=== PATIENT | female | born 1925 | race Caucasian/White ===

== ENCOUNTER 2016-10-27 16:55 | Inpatient (IN) | payer OTHER ==
[2016-10-27] MEDS ORDERED: IPRATROPIUM/ALBUTEROL 3 ML DEYVIAL IH ONE (17:17)
--- NOTE | 2016-10-27 17:49 | EDPHY ---
H & P Stated Complaint: cough sob Time Seen by Provider: 10/27/16 17:08 HPI/ROS: Chief complaint: Shortness of breath History of present illness: This is an 89-year-old female who currently resides in a memory care center and has a history of COPD who presents to the emergency department with family for evaluation of shortness of breath. Patient has been short of breath for the last week or so. It has been intermittent in nature. She has been struggling with allergies during this time. Family visited her today and vital signs were checked by staff and it was noted that her pulse oximetry was in the mid to low 80s. Family brought her here for further evaluation and care. On my evaluation patient states she feels well, she currently has no complaints. No report of fever, no persistent cough, no current shortness of breath, no chest pain, no pain or swelling in the legs. Review of systems: A 10 point review of systems was obtained and other than described above was negative - Personal History Current Tetanus/Diphtheria Vaccine: Yes - Medical/Surgical History Hx Asthma: No Hx Chronic Respiratory Disease: Yes Hx Diabetes: No Hx Cardiac Disease: No Hx Renal Disease: No Hx Cirrhosis: No Hx Alcoholism: No Hx HIV/AIDS: No Hx Splenectomy or Spleen Trauma: No Other PMH: copd - Social History Smoking Status: Former smoker - Physical Exam Exam: General Appearance: Alert, nontoxic. Eyes: Pupils equal and round no pallor or injection. ENT, Mouth: Mucous membranes moist. Respiratory: Lung sounds are globally diminished. Cardiovascular: Regular rate and rhythm. Gastrointestinal: Abdomen is soft and non tender, no masses, bowel sounds normal. Neurological: Alert and oriented x4. Skin: Warm and dry, no rashes. Musculoskeletal: Neck is supple non tender. Extremities are symmetrical, full range of motion. Psychiatric: Patient is oriented X 3, there is no agitation. Constitutional: Initial Vital Signs Temperature (C) 37.3 C 10/27/16 17:03 Heart Rate 87 10/27/16 17:03 Respiratory Rate 18 10/27/16 17:03 Blood Pressure 139/78 H 10/27/16 17:03 O2 Sat (%) 89 L 10/27/16 17:03 O2 Delivery Mode Room Air Allergies/Adverse Reactions: aspirin Allergy (Verified 10/27/16 17:00) ibuprofen [From Advil] Allergy (Verified 10/27/16 17:00) naproxen [From Aleve] Allergy (Verified 10/27/16 17:00) Home Medications: Medication Instructions Recorded Acetaminophen [Tylenol 325mg (*)] 650 mg PO Q8 PRN 10/27/16 Albuterol [Proventil Inhaler HFA 2 puffs IH Q4-6PRN PRN 10/27/16 (*)] Budesonide 90 Mcg INH [Pulmicort 2 puffs IH BID 10/27/16 90 Mcg Flexhaler (*)] Cholecalciferol Vit D3 [Vitamin D3 1,000 units PO DAILY 10/27/16 (*)] Cyanocobalamin [Vitamin B12 (*)] 400 mcg PO DAILY 10/27/16 Diltiazem Cd [Cardizem ER 180 MG 180 mg PO DAILY 10/27/16 (RX)] Docusate Sodium [Colace 100 MG (*)] 100 mg PO BID 10/27/16 Escitalopram Oxalate [Lexapro] 5 mg PO HS 10/27/16 Fluticasone Nasal [Flonase Nasal 2 sprays NASAL DAILY 10/27/16 [place] (RX)] Herbals/Supplements -Info Only 1 ea PO DAILY 10/27/16 Ipratropium/Albuterol [Duoneb (*)] 3 ml IH Q4H PRN 10/27/16 Levothyroxine [Synthroid 50 mcg 50 mcg PO DAILY06 10/27/16 (*)] Loratadine [Claritin 10 mg] 10 mg PO HS PRN 10/27/16 Simvastatin 10 mg PO HS 10/27/16 Medical Decision Making - Diagnostics Imaging Results: Imaging Impressions Chest X-Ray 10/27/16 17:17 Impression: 1. 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 2. Osteoporosis. This patient might benefit from a DEXA scan. Imaging: I viewed and interpreted images myself ED Course/Re-evaluation: Patient discussed with my secondary supervising physician Dr. Haris Quinteros. Patient presents to the emergency depart with reported shortness of breath without current symptoms. Pulse oximetry does show patient to be hypoxic. Evaluation shows decreased lung sounds. Chest x-ray consistent with COPD. EKG and laboratory studies otherwise unremarkable. I am concerned for a COPD exacerbation. She has been given a DuoNeb and Solu-Medrol. She continues to have decreased lung sounds and remains hypoxic, she decreased to 84% while ambulating. She will be admitted to Dr. Chan for further evaluation and care. The plan has been discussed with the patient and family and they voiced understanding and agreement with it. Differential Diagnosis: Included but not limited to COPD exacerbation, pneumonia, ACS, PE, pneumothorax - Data Points Laboratory Results: Laboratory Results 10/27/16 18:02 10/27/16 18:02 10/27/16 10/27/16 10/27/16 18:06 18:02 18:02 WBC 8.93 10^3/uL 10^3/uL (3.80-9.50) RBC 4.67 10^6/uL 10^6/uL (4.18-5.33) Hgb 13.9 g/dL g/dL (12.6-16.3) Hct 43.3 % % (38.0-47.0) MCV 92.7 fL fL (81.5-99.8) MCH 29.8 pg pg (27.9-34.1) MCHC 32.1 g/dL L g/dL (32.4-36.7) RDW 13.2 % % (11.5-15.2) Plt Count 320 10^3/uL 10^3/uL (150-400) MPV 9.1 fL fL (8.7-11.7) Neut % (Auto) 72.3 % % (39.3-74.2) Lymph % (Auto) 13.8 % L % (15.0-45.0) [place] % (Auto) 6.0 % % (4.5-13.0) Eos % (Auto) 6.7 % % (0.6-7.6) Baso % (Auto) 0.4 % % (0.3-1.7) Nucleat RBC Rel Count 0.0 % % (0.0-0.2) Absolute Neuts (auto) 6.45 10^3/uL 10^3/uL (1.70-6.50) Absolute Lymphs (auto) 1.23 10^3/uL 10^3/uL (1.00-3.00) Absolute Monos (auto) 0.54 10^3/uL 10^3/uL (0.30-0.80) Absolute Eos (auto) 0.60 10^3/uL H 10^3/uL (0.03-0.40) Absolute Basos (auto) 0.04 10^3/uL 10^3/uL (0.02-0.10) Absolute Nucleated RBC 0.00 10^3/uL 10^3/uL (0-0.01) Immature Gran % 0.8 % % (0.0-1.1) Immature Gran # 0.07 10^3/uL 10^3/uL (0.00-0.10) D-Dimer 0.65 ug/mLFEU H ug/mLFEU (0.00-0.50) Sodium 138 mEq/L mEq/L (134-144) Potassium 4.7 mEq/L mEq/L (3.5-5.2) Chloride 104 mEq/L mEq/L (97-110) Carbon Dioxide 21 mEq/l L mEq/l (22-31) Anion Gap 13 mEq/L mEq/L (8-16) BUN 16 mg/dL mg/dL (7-23) Creatinine 0.8 mg/dL mg/dL (0.6-1.0) Estimated GFR > 60 Glucose 109 mg/dL H mg/dL (70-100) Calcium 9.8 mg/dL mg/dL (8.5-10.4) Troponin I < 0.012 ng/mL ng/mL (0-0.034) Medications Given: Discontinued Medications Albuterol/Ipratropium (Duoneb) 3 ml IH EDNOW ONE Stop: 10/27/16 17:18 Last Admin: 10/27/16 17:45 Dose: 3 ml Methylprednisolone Sodium Succinate (Solu-Medrol) 125 mg IVP EDNOW ONE Stop: 10/27/16 18:22 Last Admin: 10/27/16 18:56 Dose: 125 mg Departure - Departure Disposition: [facility] Acute Clinical Impression: Chronic obstructive pulmonary disease with acute exacerbation Condition: Good
--- NOTE | 2016-10-27 18:04 | CPEKG ---
Heart Rate: 85 RR Interval: 706 P-R Interval: 140 QRSD Interval: 68 QT Interval: 340 QTC Interval: 405 P [place]: 48 QRS Marion: 5 T Wave [place]: 64 EKG Severity - NORMAL ECG - EKG Impression: SINUS RHYTHM Electronically Signed By: Haris Quinteros 27-Oct-2016 23:29:14
[2016-10-27 18:11] LABS: % IMMATURE GRANULYOCYTES 0.8 % (0.0-1.1); ABSOLUTE IMMATURE GRANULOCYTES 0.07 10^3/uL (0.00-0.10); ADD DIFF? NO; ADD MORPH? NO; ADD SCAN? NO; ATYPICAL LYMPHOCYTE FLAG 0 (0-99); FRAGMENT RBC FLAG 0 (0-99); HEMATOCRIT 43.3 % (38.0-47.0); HEMOGLOBIN 13.9 g/dL (12.6-16.3); LEFT SHIFT FLG 0 (0-99); LIPEMIA HEMOLYSIS FLAG 80 (0-99); MEAN CELL HEMOGLOBIN 29.8 pg (27.9-34.1); MEAN CELL HEMOGLOBIN CONCENTR. 32.1 g/dL (32.4-36.7); MEAN CELL VOLUME 92.7 fL (81.5-99.8); MEAN PLATELET VOLUME 9.1 fL (8.7-11.7); PLATELET CLUMPS FLAG 10 (0-99); PLATELET COUNT 320 10^3/uL (150-400); RED BLOOD CELL COUNT 4.67 10^6/uL (4.18-5.33); RED CELL DISTRIBUTION WIDTH 13.2 % (11.5-15.2)
[2016-10-27 18:21] LABS: CALCIUM 9.8 mg/dL (8.5-10.4); CARBON DIOXIDE 21 mEq/l (22-31); CHLORIDE 104 mEq/L (97-110); CREATININE 0.8 mg/dL (0.6-1.0); GLOMERULAR FILTRATION RATE > 60; GLUCOSE 109 mg/dL (70-100); SODIUM 138 mEq/L (134-144)
[2016-10-27] MEDS ORDERED: methylPREDNISolone SOD SUCC 125 MG/2 ML VIAL IVP ONE (18:21)
[2016-10-27 18:32] LABS: TROPONIN I < 0.012 ng/mL (0-0.034)
[2016-10-27 18:38] LABS: ANION GAP 13 mEq/L (8-16); POTASSIUM 4.7 mEq/L (3.5-5.2)
[2016-10-27] MEDS ORDERED: ALBUTEROL 3 ML DEYVIAL IH PRN (18:40)
[2016-10-27] MEDS ORDERED: ONDANSETRON 4 MG/2 ML VIAL IVP PRN (18:40)
[2016-10-27] MEDS ORDERED: ONDANSETRON DISINTEGRATING 4 MG TAB PO PRN (18:40)
[2016-10-27] MEDS ORDERED: ALBUTEROL 60 PUFFS/8 GM MDI IH PRN (19:47)
[2016-10-27] MEDS ORDERED: CETIRIZINE 10 MG TAB PO PRN (19:47)
--- NOTE | 2016-10-27 19:54 | PDGENHP ---
History and Physical - Chief Complaint Acute cough - History of Present Illness Primary care provider: Dr. Mcrae HPI: 89-year-old female presenting with acute cough characterized as productive , with associated allergic symptoms, intermittent shortness of breath, general malaise with onset of symptoms approximately 8 days ago. The patient was reportedly seen by a primary care tender at [facility] today and was noted to have an SpO2 of less than 90% on room air at rest. She was then noted to have an ambulatory saturation of 82% on room air. The patient's daughter notes that approximately 8 days ago she had been taking Claritin for her allergic symptoms and then was switched to Zyrtec. Zyrtec reportedly alleviated the sinus congestion improve the cough, but it resulted in a daytime fatigue and was subsequently discontinued. The patient is now currently back on Claritin. The patient has been using her home inhalers regularly but has not recently been on steroids. She otherwise denies any subjective fevers or chills. She denies any GI symptoms. History Information - Allergies/Home Medication List Allergies/Adverse Reactions: aspirin Allergy (Verified 10/27/16 17:00) ibuprofen [From Advil] Allergy (Verified 10/27/16 17:00) naproxen [From Aleve] Allergy (Verified 10/27/16 17:00) shellfish derived Allergy (Verified 10/27/16 19:37) Home Medications: Acetaminophen [Tylenol 325mg (*)] 650 mg PO Q8 PRN 10/27/16 [Last Taken Unknown] Albuterol [Proventil Inhaler HFA (*)] 2 puffs IH Q4-6PRN PRN 10/27/16 [Last Taken Unknown] Budesonide 90 Mcg INH [Pulmicort 90 Mcg Flexhaler (*)] 2 puffs IH BID 10/27/16 [ Last Taken 10/27/16 1 PUFF] Cholecalciferol Vit D3 [Vitamin D3 (*)] 1,000 units PO DAILY 10/27/16 [Last Taken 10/27/16] Cyanocobalamin [Vitamin B12 (*)] 400 mcg PO DAILY 10/27/16 [Last Taken 10/27/16] Diltiazem Cd [Cardizem ER 180 MG (RX)] 180 mg PO DAILY 10/27/16 [Last Taken 01/05] Docusate Sodium [Colace 100 MG (*)] 100 mg PO BID 10/27/16 [Last Taken 10/27/16 1 CAP] Escitalopram Oxalate [Lexapro] 5 mg PO HS 10/27/16 [Last Taken 10/26/16] Fluticasone Nasal [Flonase Nasal [place] (RX)] 2 sprays NASAL DAILY 10/27/16 [ Last Taken 10/27/16] Herbals/Supplements -Info Only 1 ea PO DAILY 10/27/16 [Last Taken Unknown] Ipratropium/Albuterol [Duoneb (*)] 3 ml IH Q4H PRN 10/27/16 [Last Taken 3 TIMES] Levothyroxine [Synthroid 50 mcg (*)] 50 mcg PO DAILY06 10/27/16 [Last Taken 01/05] Loratadine [Claritin 10 mg] 10 mg PO HS PRN 10/27/16 [Last Taken Unknown] Simvastatin 10 mg PO HS 10/27/16 [Last Taken 10/26/16] I have personally reviewed and updated: family history, medical history, social history, surgical history - Past Medical History atrial fibrillation (Unclear type, on calcium channel taniya), COPD (On chronic budesonide history of oral steroid use) Additional medical history: Dementia living in the memory care unit - Surgical History Reports: no pertinent surgical hx - Family History Additional family history: No recent sick family contacts - Social History Smoking Status: Former smoker Alcohol Use: None Drug Use: None Additional social history: Lives in [facility], previously living in [facility], living in [place] before that, daughter lives locally Review of Systems ROS: 10pt was reviewed & negative except for what was stated in HPI & below EENMT: Reports: nose congestion Respiratory: Reports: cough, shortness of breath Physical Exam Temp Pulse Resp BP Pulse Ox 37.3 C 87 18 139/78 H 89 L 10/27/16 17:03 10/27/16 17:03 10/27/16 17:03 10/27/16 17:03 10/27/16 17:03 Constitutional: no apparent distress, appears nourished, not in pain, chronically ill appearing, No uncomfortable Eyes: PERRL, anicteric sclera, EOMI Ears, Nose, Mouth, Throat: moist mucous membranes, hearing normal, ears appear normal, no oral mucosal ulcers Cardiovascular: regular rate and rhythym, no murmur, rub, or gallop, edema ( Trace bilateral lower extremities) Respiratory: reduced air movement (Previous inspiratory and expiratory air movement bilaterally), No expiratory wheeze, No inspiratory crackles, No bronchial breath sounds, No respiratory distress Gastrointestinal: normoactive bowel sounds, soft, non-tender abdomen, no palpable masses Skin: other (Firm, mildly tender left jowel subcutaneous nodule without any overlying erythema) Neurologic: other (Alert awake oriented x2 to person and place not to time), No weakness, No facial droop Psychiatric: interacting appropriately, not encephalopathic, thought process linear, flat affect, other (Concentration /), No agitated Lymph, Heme, Immunologic: other (Mildly tender left submandibular lymph node, no anterior cervical lymphadenopathy) Lab Data & Imaging Review 10/27/16 18:02 10/27/16 18:02 WBC 8.93 10^3/uL (3.80-9.50) 10/27/16 18:02 RBC 4.67 10^6/uL (4.18-5.33) 10/27/16 18:02 Hgb 13.9 g/dL (12.6-16.3) 10/27/16 18:02 Hct 43.3 % (38.0-47.0) 10/27/16 18:02 MCV 92.7 fL (81.5-99.8) 10/27/16 18:02 MCH 29.8 pg (27.9-34.1) 10/27/16 18:02 MCHC 32.1 g/dL (32.4-36.7) L 10/27/16 18:02 RDW 13.2 % (11.5-15.2) 10/27/16 18:02 Plt Count 320 10^3/uL (150-400) 10/27/16 18:02 MPV 9.1 fL (8.7-11.7) 10/27/16 18:02 Neut % (Auto) 72.3 % (39.3-74.2) 10/27/16 18:02 Lymph % (Auto) 13.8 % (15.0-45.0) L 10/27/16 18:02 [place] % (Auto) 6.0 % (4.5-13.0) 10/27/16 18:02 Eos % (Auto) 6.7 % (0.6-7.6) 10/27/16 18:02 Baso % (Auto) 0.4 % (0.3-1.7) 10/27/16 18:02 Nucleat RBC Rel Count 0.0 % (0.0-0.2) 10/27/16 18:02 Absolute Neuts (auto) 6.45 10^3/uL (1.70-6.50) 10/27/16 18:02 Absolute Lymphs (auto) 1.23 10^3/uL (1.00-3.00) 10/27/16 18:02 Absolute Monos (auto) 0.54 10^3/uL (0.30-0.80) 10/27/16 18:02 Absolute Eos (auto) 0.60 10^3/uL (0.03-0.40) H 10/27/16 18:02 Absolute Basos (auto) 0.04 10^3/uL (0.02-0.10) 10/27/16 18:02 Absolute Nucleated RBC 0.00 10^3/uL (0-0.01) 10/27/16 18:02 Immature Gran % 0.8 % (0.0-1.1) 10/27/16 18:02 Immature Gran # 0.07 10^3/uL (0.00-0.10) 10/27/16 18:02 D-Dimer 0.65 ug/mLFEU (0.00-0.50) H 10/27/16 18:06 Sodium 138 mEq/L (134-144) 10/27/16 18:02 Potassium 4.7 mEq/L (3.5-5.2) 10/27/16 18:02 Chloride 104 mEq/L (97-110) 10/27/16 18:02 Carbon Dioxide 21 mEq/l (22-31) L 10/27/16 18:02 Anion Gap 13 mEq/L (8-16) 10/27/16 18:02 BUN 16 mg/dL (7-23) 10/27/16 18:02 Creatinine 0.8 mg/dL (0.6-1.0) 10/27/16 18:02 Estimated GFR > 60 10/27/16 18:02 Glucose 109 mg/dL (70-100) H 10/27/16 18:02 Calcium 9.8 mg/dL (8.5-10.4) 10/27/16 18:02 Troponin I < 0.012 ng/mL (0-0.034) 10/27/16 18:02 Visualized and Interpreted Chest x-ray results: Yes Chest X-Ray results: no infiltrate (Hyper inflated, osteo per [place]) Visualized and Interpreted EKG results: Yes EKG Interpretation: Positive for: other (Q-wave in lead 3) Assessment & Plan Assessment: 89-year-old female presents with acute COPD exacerbation in the setting of URI Plan: 1. COPD exacerbation. Acute, new problem this provider, further workup indicated. Evidenced by reduction in expiratory air movement with hypoxia and recent cough, most likely secondary to URI -discussed with Basil Villa, emergency department provider, he has informed me that he is given the patient IV steroids, DuoNeb treatment -continue oral prednisone for a total 5 day burst -continue scheduled duo nebs, p.r.n. inhalers -hold on antibiotics given age and comorbidities and no evidence of infiltrate on chest x-ray -continue Claritin -continue Mucinex -Tessalon Perles as needed -continue to monitor oxygen saturation, discharged home tomorrow with supplemental oxygen if SpO2 remains less than 90% on room air -schedule outpatient follow-up appoint with Dr. Jurgen Alberts for next week, patient and family are very amenable to this -order outside records including most recent primary care note and pulmonary function tests from her previous primary care provider, Dr. Rut Umana 2. Atrial fibrillation. Unclear type, continue calcium channel taniya 3. Dementia. Chronic, currently no behavioral disturbance, monitor for signs of sundowning Diet. Regular Prophylaxis. High risk patient, Lovenox 40 Code. Do not resuscitate per patient, her daughter is her MPOA Disposition. Anticipated discharge is 10/28/2016, pending further workup and treatment of conditions as outlined above.
[2016-10-27] MEDS ORDERED: BENZONATATE 100 MG CAP PO PRN (19:59)
[2016-10-27] MEDS ORDERED: IPRATROPIUM/ALBUTEROL 3 ML DEYVIAL IH SCH (21:00)
[2016-10-27] MEDS: BUDESONIDE 90 MCG MDI IH SCH (21:59)
[2016-10-27] MEDS: ESCITALOPRAM OXALATE 10 MG TAB PO SCH (22:39)
[2016-10-27] MEDS: guaiFENesin 600 MG TAB.ER PO SCH (22:40)
[2016-10-27] MEDS: DOCUSATE SODIUM 100 MG CAP PO SCH (22:40)
[2016-10-27] MEDS: PRAVASTATIN SODIUM 20 MG TAB PO SCH (22:41)
[2016-10-27] MEDS: ACETAMINOPHEN 325 MG TAB PO PRN (23:28)
[2016-10-28] MEDS: LEVOTHYROXINE 50 MCG TAB PO SCH (05:22)
[2016-10-28] MEDS: CYANO/VITAMIN B12 100 MCG TAB PO SCH (08:25)
[2016-10-28] MEDS: guaiFENesin 600 MG TAB.ER PO SCH ×2 (08:26→19:39)
[2016-10-28] MEDS: predniSONE 20 MG TAB PO SCH (08:26)
[2016-10-28] MEDS: DOCUSATE SODIUM 100 MG CAP PO SCH ×2 (08:26→19:37)
[2016-10-28] MEDS: ENOXAPARIN 40 MG/0.4 ML SYR SC SCH (08:26)
[2016-10-28] MEDS: DILTIAZEM CD 180 MG CAP PO SCH (08:26)
[2016-10-28] MEDS: CHOLECALCIFEROL VIT D3 1,000 UNITS TAB PO SCH (08:26)
[2016-10-28] MEDS: FLUTICASONE NASAL 120 SPRAYS/16 GM MDI EACHNARE SCH (08:28)
[2016-10-28] MEDS: BUDESONIDE 90 MCG MDI IH SCH ×2 (08:29→21:18)
[2016-10-28] MEDS ORDERED: Herbals/Supplements -Info Only PO SCH (09:00)
--- NOTE | 2016-10-28 11:49 | HOSPPROG ---
Hospitalist Progress Note Assessment/Plan: Patient is an 89 y/o female who presented to the ER w a cough and allergy symptoms. She also has c/o shortness of breath. Today is my first encounter with the patient/ chart reviewed. *COPD exacerbation will need Oxygen on dc/sats on room air are 82% duonebs and prednisone Claritin and Mucinex has an elevated d dimer/ afib could affect this/ get a CTA to see Dr Alberts next week for further f/u *hypoxemia will need home O2 suspect it is from COPD but will r/o a PE *Generalized weakness OT recommending SNF *HTN has had persistent elevated bp will initiate low dose of amlodipine *afib calcium channel taniya *dementia at her baseline *Plan: patient will require another midnight stay for further evaluation w a CTA. Not a safe dc to her AL due to weakness and may require a SNF. Subjective: Sisi is still short of breath, she isn't sure if she is at her baseline or not. Objective: Vital Signs Temp Pulse Resp BP Pulse Ox 36.3 C 87 22 H 176/85 H 93 10/28/16 11:20 10/28/16 11:20 10/28/16 11:20 10/28/16 11:20 10/28/16 11:20 10/27/16 10/28/16 10/29/16 05:59 05:59 05:59 Intake Total 500 Balance 500 - Physical Exam Constitutional: no apparent distress Eyes: PERRL Ears, Nose, Mouth, Throat: hard of hearing Cardiovascular: regular rate and rhythym Respiratory: no respiratory distress, reduced air movement (tight lung sounds) Gastrointestinal: normoactive bowel sounds Skin: warm Musculoskeletal: no muscle tenderness Psychiatric: interacting appropriately, poor memory ICD10 Worksheet Patient Problems: Problems Problem Status Onset Chronic obstructive pulmonary disease with acute exacerbation Acute
[2016-10-28] MEDS ORDERED: IOPAMIDOL (ISOVUE 370) 100 ML BTL IV ONE (15:35)
[2016-10-28] MEDS ORDERED: NS 250 ML IV SCH (16:15)
[2016-10-28] MEDS: IPRATROPIUM/ALBUTEROL 3 ML DEYVIAL IH PRN (16:59)
[2016-10-28] MEDS: ESCITALOPRAM OXALATE 10 MG TAB PO SCH (19:37)
[2016-10-28] MEDS: ACETAMINOPHEN 325 MG TAB PO PRN (19:37)
[2016-10-28] MEDS: PRAVASTATIN SODIUM 20 MG TAB PO SCH (19:38)
[2016-10-29] MEDS: LEVOTHYROXINE 50 MCG TAB PO SCH (06:01)
[2016-10-29] MEDS: CYANO/VITAMIN B12 100 MCG TAB PO SCH (09:49)
[2016-10-29] MEDS: CHOLECALCIFEROL VIT D3 1,000 UNITS TAB PO SCH (09:49)
[2016-10-29] MEDS: DOCUSATE SODIUM 100 MG CAP PO SCH ×2 (09:50→21:48)
[2016-10-29] MEDS: DILTIAZEM CD 180 MG CAP PO SCH (09:50)
[2016-10-29] MEDS: FLUTICASONE NASAL 120 SPRAYS/16 GM MDI EACHNARE SCH (09:50)
[2016-10-29] MEDS: predniSONE 20 MG TAB PO SCH (09:50)
[2016-10-29] MEDS: guaiFENesin 600 MG TAB.ER PO SCH ×2 (09:50→21:48)
[2016-10-29] MEDS: ENOXAPARIN 40 MG/0.4 ML SYR SC SCH (09:51)
--- NOTE | 2016-10-29 10:47 | HOSPPROG ---
Hospitalist Progress Note Assessment/Plan: Patient is an 89 y/o female who presented to the ER w a cough and allergy symptoms. She also has c/o shortness of breath. *COPD exacerbation will need Oxygen on dc/sats on room air are 82% duonebs and prednisone Claritin and Mucinex CTA shows no PE to see Dr Alberts for further f/u *hypoxemia will need home O2 r/t COPD *Generalized weakness OT & PT recommending SNF *HTN has had persistent elevated bp low dose of amlodipine w improvement/ may need dose increased/will monitor another day *afib calcium channel taniya *dementia at her baseline *Plan: will need SNF/ FM Subjective: Sisi is feeling much better today/ still has ongoing shortness of breath. Objective: Vital Signs Temp Pulse Resp BP Pulse Ox 36.8 C 84 12 158/78 H 92 10/29/16 07:39 10/29/16 09:50 10/29/16 07:39 10/29/16 09:49 10/29/16 07:39 10/28/16 10/29/16 10/30/16 05:59 05:59 05:59 Intake Total 550 Balance 550 - Physical Exam Constitutional: no apparent distress, appears nourished, not in pain Eyes: PERRL Ears, Nose, Mouth, Throat: hard of hearing Cardiovascular: regular rate and rhythym Respiratory: no respiratory distress, reduced air movement (bases) Gastrointestinal: normoactive bowel sounds Skin: warm, normal color Musculoskeletal: generalized weakness Neurologic: AAOx3 Psychiatric: interacting appropriately, poor memory ICD10 Worksheet Patient Problems: Problems Problem Status Onset Chronic obstructive pulmonary disease with acute exacerbation Acute
[2016-10-29 10:51] LABS: ANION GAP 8 mEq/L (8-16); CALCIUM 9.6 mg/dL (8.5-10.4); CARBON DIOXIDE 25 mEq/l (22-31); CHLORIDE 107 mEq/L (97-110); CREATININE 0.8 mg/dL (0.6-1.0); GLOMERULAR FILTRATION RATE > 60; GLUCOSE 87 mg/dL (70-100); POTASSIUM 4.2 mEq/L (3.5-5.2); SODIUM 140 mEq/L (134-144)
[2016-10-29] MEDS: BUDESONIDE 90 MCG MDI IH SCH ×2 (11:40→22:09)
[2016-10-29] MEDS: IPRATROPIUM/ALBUTEROL 3 ML DEYVIAL IH PRN ×2 (11:40→22:09)
[2016-10-29] MEDS: ESCITALOPRAM OXALATE 10 MG TAB PO SCH (21:47)
[2016-10-29] MEDS: PRAVASTATIN SODIUM 20 MG TAB PO SCH (21:48)
[2016-10-30] MEDS: LEVOTHYROXINE 50 MCG TAB PO SCH (05:09)
[2016-10-30] MEDS: guaiFENesin 600 MG TAB.ER PO SCH ×2 (09:09→23:17)
[2016-10-30] MEDS: predniSONE 20 MG TAB PO SCH (09:09)
[2016-10-30] MEDS: DOCUSATE SODIUM 100 MG CAP PO SCH ×2 (09:09→23:17)
[2016-10-30] MEDS: ENOXAPARIN 40 MG/0.4 ML SYR SC SCH (09:10)
[2016-10-30] MEDS: CHOLECALCIFEROL VIT D3 1,000 UNITS TAB PO SCH (09:10)
[2016-10-30] MEDS: DILTIAZEM CD 180 MG CAP PO SCH (09:10)
[2016-10-30] MEDS: CYANO/VITAMIN B12 100 MCG TAB PO SCH (09:10)
[2016-10-30] MEDS: FLUTICASONE NASAL 120 SPRAYS/16 GM MDI EACHNARE SCH (09:15)
[2016-10-30] MEDS: BUDESONIDE 90 MCG MDI IH SCH ×2 (09:16→20:04)
[2016-10-30] MEDS: IPRATROPIUM/ALBUTEROL 3 ML DEYVIAL IH PRN (10:51)
--- NOTE | 2016-10-30 14:54 | HOSPPROG ---
Hospitalist Progress Note Assessment/Plan: Patient is an 89 y/o female who presented to the ER w a cough and allergy symptoms. She also has c/o shortness of breath. *COPD exacerbation will need Oxygen on dc/sats on room air are 82% duonebs and prednisone Claritin and Mucinex CTA shows no PE to see Dr Alberts for further f/u much improved today/ on 1/2 liter of O2 *hypoxemia will need home O2 r/t COPD *Generalized weakness OT & PT recommending SNF *HTN much improvement w amlodipine *afib calcium channel taniya *dementia at her baseline *Plan: will need SNF/ FM Subjective: Parris is feeling well today. No complaints. Objective: Vital Signs Temp Pulse Resp BP Pulse Ox 37.0 C 67 18 128/67 H 91 L 10/30/16 08:18 10/30/16 10:51 10/30/16 10:51 10/30/16 09:10 10/30/16 14:22 Laboratory Results 10/29/16 10:06 10/29/16 10/30/16 10/31/16 05:59 05:59 05:59 Intake Total 550 700 Balance 550 700 - Physical Exam Constitutional: no apparent distress, appears nourished, not in pain Eyes: PERRL Ears, Nose, Mouth, Throat: hard of hearing Cardiovascular: regular rate and rhythym Respiratory: no respiratory distress Gastrointestinal: normoactive bowel sounds Skin: warm Musculoskeletal: generalized weakness Neurologic: AAOx3 Psychiatric: interacting appropriately, not anxious ICD10 Worksheet Patient Problems: Problems Problem Status Onset Chronic obstructive pulmonary disease with acute exacerbation Acute
[2016-10-30] MEDS: ESCITALOPRAM OXALATE 10 MG TAB PO SCH (23:17)
[2016-10-30] MEDS: PRAVASTATIN SODIUM 20 MG TAB PO SCH (23:17)
[2016-10-31] MEDS: LEVOTHYROXINE 50 MCG TAB PO SCH (06:29)
[2016-10-31 08:01] VITALS: BP 143/57; RESP 18; TEMP 98.3; O2SAT 91
[2016-10-31] MEDS: BUDESONIDE 90 MCG MDI IH SCH (08:04)
[2016-10-31] MEDS: DILTIAZEM CD 180 MG CAP PO SCH (08:21)
[2016-10-31] MEDS: CYANO/VITAMIN B12 100 MCG TAB PO SCH (08:21)
[2016-10-31] MEDS: DOCUSATE SODIUM 100 MG CAP PO SCH (08:21)
[2016-10-31] MEDS: CHOLECALCIFEROL VIT D3 1,000 UNITS TAB PO SCH (08:21)
[2016-10-31] MEDS: guaiFENesin 600 MG TAB.ER PO SCH (08:22)
[2016-10-31] MEDS: FLUTICASONE NASAL 120 SPRAYS/16 GM MDI EACHNARE SCH (08:22)
[2016-10-31] MEDS: predniSONE 20 MG TAB PO SCH (08:22)
[2016-10-31] MEDS: ENOXAPARIN 40 MG/0.4 ML SYR SC SCH (08:22)
--- NOTE | 2016-10-31 08:50 | HOSPPROG ---
Hospitalist Progress Note Assessment/Plan: Patient is an 89 y/o female who presented to the ER w a cough and allergy symptoms. She also has c/o shortness of breath. *COPD exacerbation will need Oxygen on dc/sats on room air are 86% duonebs and prednisone Claritin and Mucinex CTA shows no PE to see Dr Alberts for further f/u much improved today/ on 1/2 liter of O2 *hypoxemia will need home O2 r/t COPD *Generalized weakness OT & PT recommending SNF *HTN much improvement w amlodipine *afib calcium channel taniya *dementia at her baseline *Plan: dispo to SNF Subjective: Parris is feeling well/ anxious to be dc Objective: Vital Signs Temp Pulse Resp BP Pulse Ox 36.8 C 69 18 143/57 H 91 L 10/31/16 07:59 10/31/16 08:21 10/31/16 07:59 10/31/16 07:59 10/31/16 08:04 Laboratory Results 10/29/16 10:06 10/30/16 10/31/16 11/01/16 05:59 05:59 05:59 Intake Total 700 350 Balance 700 350 - Physical Exam Constitutional: no apparent distress, appears nourished, not in pain Eyes: PERRL Ears, Nose, Mouth, Throat: hearing normal Respiratory: no respiratory distress Skin: warm Musculoskeletal: generalized weakness Neurologic: AAOx3 Psychiatric: interacting appropriately, not anxious ICD10 Worksheet Patient Problems: Problems Problem Status Onset Chronic obstructive pulmonary disease with acute exacerbation Acute
--- NOTE | 2016-10-31 09:00 | PDIAF ---
- Diagnosis Diagnosis: COPD exacerbation Code Status: Full Code - Medication Management Discharge Medications: Medications to Continue on Transfer Acetaminophen [Tylenol 325mg (*)] 650 mg PO Q8 PRN 10/27/16 [Last Taken Unknown] Albuterol [Proventil Inhaler HFA (*)] 2 puffs IH Q4-6PRN PRN 10/27/16 [Last Taken Unknown] Budesonide 90 Mcg INH [Pulmicort 90 Mcg Flexhaler (*)] 2 puffs IH BID 10/27/16 [ Last Taken 10/27/16 1 PUFF] Cholecalciferol Vit D3 [Vitamin D3 (*)] 1,000 units PO DAILY 10/27/16 [Last Taken 10/27/16] Cyanocobalamin [Vitamin B12 (*)] 400 mcg PO DAILY 10/27/16 [Last Taken 10/27/16] Diltiazem Cd [Cardizem ER Q24hr] 180 mg PO DAILY 10/27/16 [Last Taken 10/27/16] Docusate Sodium [Colace 100 MG (*)] 100 mg PO BID 10/27/16 [Last Taken 10/27/16 1 CAP] Escitalopram Oxalate [Lexapro] 5 mg PO HS 10/27/16 [Last Taken 10/26/16] Fluticasone Nasal [Flonase Nasal [place]] 2 sprays NASAL DAILY 10/27/16 [Last Taken 10/27/16] Herbals/Supplements -Info Only 1 ea PO DAILY 10/27/16 [Last Taken Unknown] Ipratropium/Albuterol [Duoneb (*)] 3 ml IH Q4H PRN 10/27/16 [Last Taken 3 TIMES] Levothyroxine [Synthroid 50 mcg (*)] 50 mcg PO DAILY06 10/27/16 [Last Taken 01/05] Loratadine [Claritin 10 mg] 10 mg PO HS PRN 10/27/16 [Last Taken Unknown] Simvastatin 10 mg PO HS 10/27/16 [Last Taken 10/26/16] amLODIPine BESYLATE [Norvasc 2.5 mg (*)] 2.5 mg PO DAILY tab 10/31/16 [Last Taken Unknown] predniSONE 20 mg PO DAILY tablet 10/31/16 [Last Taken Unknown] Discharge Medications: Refer to the Discharge Home Medication list for PRN reason. - Orders Services needed: Physical Therapy, Occupational Therapy Oxygen: 2 liters Diet Recommendation: no restrictions on diet Diet Texture: Regular Texture Diet Additional: prednisone 20 mg x 3 days, then decrease to 10 mg x 3 days; then stop, take with food. - Follow Up Care Current Providers and Referrals: Miki Alberts MD [Medical Doctor] - 3-5 days Oksana Mcrae MD [Primary Care Provider] - As per Instructions
--- NOTE | 2016-10-31 10:02 | GDS ---
[f rep st] DISCHARGE SUMMARY DISCHARGE DIAGNOSES: 1. Chronic obstructive pulmonary disease exacerbation. 2. Hypoxemia. 3. General weakness. 4. Hypertension. 5. Atrial fibrillation. 6. Dementia. HISTORY OF PRESENT ILLNESS: Briefly, the patient is an 89-year-old female, who presented to the ER with a cough and allergy symptoms. She also complains of shortness of breath. It was noted that sh jaret had an elevated D-dimer. A CTA was performed which showed no pulmonary emboli. She will be disch arged to [facility] for rehab. HOSPITAL COURSE BY PROBLEM: 1. COPD exacerbation. She is on DuoNeb and prednisone. The prednisone will be weaned off. She wi ll further follow up with Dr. Alberts in the outpatient setting. 2. Hypoxemia. Resolved with oxygen. 3. Generalized weakness. She will get occupational therapy and physical therapy at the [facility] facility. 4. Hypertension. A new medication added to her list is amlodipine. She has had much improvement. 5. Atrial fibrillation on calcium channel taniya. 6. Dementia. She is at her baseline pending labs and tests. CONDITION ON DISCHARGE: Stable. Blood pressure is 143/57, respiratory rate is 18, pulse is 69, tem perature is 36.9 Celsius, O2 saturation on 1 L 91%. MEDICATIONS AT DISCHARGE: Please see the EMR. DISCHARGE INSTRUCTIONS: 1. To follow up with Dr. Jurgen Alberts with pulmonology. 2. If still fever, chills, chest pain, or worsening of shortness of breath, return to the ER. TIME SPENT: Greater than 30 minutes discharging and coordinating care. /[id number]/MODL
[2016-10-31] MEDS: IPRATROPIUM/ALBUTEROL 3 ML DEYVIAL IH PRN (10:51)
[2016-10-31 11:04] VITALS: PULSE 75
== END 2016-10-31 11:57 | DRG 192 ==
LOC: F3N 20:13 → OBSVTOIN 10-28 14:49
PROVIDERS: ADMIT Internal Medicine; ATTEND Internal Medicine
DX: J44.1 Chronic obstructive pulmonary disease with (acute) exacerbation (principal); R09.02 Hypoxemia; I10 Essential (primary) hypertension; I48.91 Unspecified atrial fibrillation; F03.90 Unspecified dementia, unspecified severity, without behavioral disturbance, psychotic disturbance, mood disturbance, and anxiety; R53.1 Weakness; Z87.891 Personal history of nicotine dependence; Z66 Do not resuscitate
CPT/HCPCS: 97116-GP; 97162-GP; 97166-GO; 97535-GO; G0378; G8978-GP-CJ; G8979-GP-CI; G8987-GO-CK; G8988-GO-CJ; G8989-GO-CJ; J1650; Q9967

== ENCOUNTER 2016-11-29 09:51 | Emergency (ER) | payer OTHER ==
[2016-11-29 10:08] VITALS: TEMP 98.2; O2SAT 92
--- NOTE | 2016-11-29 11:33 | EDPHY ---
H & P Time Seen by Provider: 11/29/16 09:56 HPI/ROS: CHIEF COMPLAINT: Fall out of bed HISTORY OF PRESENT ILLNESS: 89-year-old female who is staying at [facility] in the memory care unit for history of dementia presents to the emergency department by ambulance with her daughter after she rolled out of bed likely this morning. The patient sustained an abrasion to her right knee and a laceration to her left elbow. She believes her tetanus shot is current. She did not hit her head or lose consciousness. She has no chest pain or difficulty breathing. The patient does not remember what happened to her because she has a history of dementia REVIEW OF SYSTEMS: Constitutional: No fever, no chills. Eyes: No double or blurry vision. ENT: No sore throat. Respiratory: No cough, no shortness of breath. Cardiac: No chest pain. Gastrointestinal: No abdominal pain, vomiting or diarrhea. Genitourinary: No dysuria. Musculoskeletal: No neck or back pain. Skin: No rashes. Neurological: No headache. Past Medical/Surgical History: Dementia currently staying in a memory unit at [facility], COPD, asthma, emphysema Social History: , lives at memory unit of [facility] Smoking Status: Former smoker Physical Exam: General Appearance: Alert, no distress. No visible signs of trauma to her head. She is mentating normally and answering questions appropriately. The daughter at bedside. Eyes: Pupils equal and round. Extraocular motions are all intact. ENT: Mouth: Mucous membranes moist. Dry blood noted to the left nostril. Respiratory: No wheezing, rhonchi, or rales, lungs are clear to auscultation. Cardiovascular: Regular rate and rhythm. Gastrointestinal: Abdomen is soft and nontender, no masses, no rebound or guarding, bowel sounds normal. Neurological: Alert and oriented x 3, cranial nerves II through XII grossly intact Skin: Superficial skin tear to the anterior aspect of the right knee. She is no laceration noted to the right knee. The left posterior elbow reveals skin tear with larger deep component. Warm and dry, no rashes. Musculoskeletal: Nontender to palpate along the cervical, thoracic or lumbar spine. Neck is supple. Extremities: Full range of motion and no peripheral edema. No palpable bony tenderness. Full range of motion of upper lower extremities. Psychiatric: Patient is oriented X 3, there is no agitation. Constitutional: Initial Vital Signs Temperature (C) 36.8 C 11/29/16 09:51 Heart Rate 79 11/29/16 09:51 Respiratory Rate 14 11/29/16 09:51 Blood Pressure 147/48 H 11/29/16 09:51 O2 Sat (%) 92 11/29/16 09:51 O2 Delivery Mode Room Air Allergies/Adverse Reactions: aspirin Allergy (Verified 10/27/16 17:00) ibuprofen [From Advil] Allergy (Verified 10/27/16 17:00) naproxen [From Aleve] Allergy (Verified 10/27/16 17:00) shellfish derived Allergy (Verified 10/27/16 19:37) Home Medications: Medication Instructions Recorded Acetaminophen [Tylenol 325mg (*)] 650 mg PO Q8 PRN 10/27/16 Albuterol [Proventil Inhaler HFA 2 puffs IH Q4-6PRN PRN 10/27/16 (*)] Budesonide 90 Mcg INH [Pulmicort 2 puffs IH BID 10/27/16 90 Mcg Flexhaler (*)] Cholecalciferol Vit D3 [Vitamin D3 1,000 units PO DAILY 10/27/16 (*)] Cyanocobalamin [Vitamin B12 (*)] 400 mcg PO DAILY 10/27/16 Diltiazem Cd [Cardizem ER Q24hr] 180 mg PO DAILY 10/27/16 Docusate Sodium [Colace 100 MG (*)] 100 mg PO BID 10/27/16 Escitalopram Oxalate [Lexapro] 5 mg PO HS 10/27/16 Fluticasone Nasal [Flonase Nasal 2 sprays NASAL DAILY 10/27/16 [place]] Herbals/Supplements -Info Only 1 ea PO DAILY 10/27/16 Ipratropium/Albuterol [Duoneb (*)] 3 ml IH Q4H PRN 10/27/16 Levothyroxine [Synthroid 50 mcg 50 mcg PO DAILY06 10/27/16 (*)] Loratadine [Claritin 10 mg] 10 mg PO HS PRN 10/27/16 Simvastatin 10 mg PO HS 10/27/16 amLODIPine BESYLATE [Norvasc 2.5 2.5 mg PO DAILY tab 10/31/16 mg (*)] predniSONE 20 mg PO DAILY tablet 10/31/16 Medical Decision Making Procedures: Laceration repair. Verbal consent was obtained from the patient. The 4 cm flap laceration on the left elbow was anesthetized using 1% lidocaine with epinephrine. The wound was irrigated with saline, draped and explored to its base with a gloved finger. There were no deep structures involved. No tendon injury was identified. The wound was repaired with 4 0 Vicryl, 1 suture and Steri-Strips. The wound repair was simple. The procedure was performed by myself. ED Course/Re-evaluation: 89-year-old female presents after fall out of her bed. She has otherwise in no apparent distress. Her daughter is here for the abrasion to her right knee and her skin tear to her left elbow. Patient has a large thicker skin tear noted to the left elbow. Did attempt to try to suture this, however this was causing further tearing. A Vicryl suture was placed in Steri-Strips were used to close the wound of her left elbow. She has Steri-Strips in her right knee as well. She was given wound care precautions. Her daughter is comfortable taking her back to [facility]. Differential Diagnosis: Including but not limited to laceration, skin tear, fracture, contusion, retained foreign body Departure - Departure Disposition: Home, Routine, Self-Care Clinical Impression: skin tear right knee Laceration of left elbow Qualifiers: Encounter type: initial encounter Qualified Code(s): S51.012A - Laceration without foreign body of left elbow, initial encounter Condition: Good Instructions: Laceration (ED), Skin Tear (ED) Additional Instructions: Return if you notice any signs or symptoms of infection such as redness, swelling, increased pain, fever, purulent drainage. Keep wound dry, clean and protected. Steri-Strips ideally will remain on for at least 1 week. Referrals: Oksana Mcrae MD [Primary Care Provider] - As per Instructions
[2016-11-29 11:50] VITALS: BP 146/79; PULSE 75; RESP 15
== END 2016-11-29 11:53 | disposition home or self-care (01) ==
LOC: EDUNIT#
PROC: 0HQEXZZ Repair Left Lower Arm Skin, External Approach (ICD-10-PCS; principal; 2016-11-29)
DX: S51.012A Laceration without foreign body of left elbow, initial encounter (principal); S81.011A Laceration without foreign body, right knee, initial encounter; J44.9 Chronic obstructive pulmonary disease, unspecified; J45.909 Unspecified asthma, uncomplicated; Z87.891 Personal history of nicotine dependence; W06.XXXA Fall from bed, initial encounter